=== PATIENT | female | born 1945 | race Caucasian/White ===

== ENCOUNTER 2018-07-12 10:26 | Day surgery (SDC) | payer MEDICARE, OTHER ==
[~2018-07-12] VITALS: Ht 165.1 cm; Wt 77.6 kg
[~2018-07-12 10:26] MED LIST: ALPR.5 PO; CHOL10002 PO; CIME400 PO; LORA1 PO; MAGCHL64ER PO; PROP10 PO; UBID10 PO
[2018-07-12] MEDS ORDERED: CO ENZYME PO (12:58)
[2018-07-12] MEDS ORDERED: VIT D PO (12:58)
[2018-07-12] MEDS ORDERED: METHI10 PO (13:00)
--- NOTE | 2018-07-12 13:03 | NUR ---
History, Chart, Medications and Allergies reviewed before start of procedure. Patient confirms NPO status and agrees with scheduled surgery. Lungs clear T/O to Auscultation. Patient DENIES completing Chlorhexadine shower X2 prior to admission to hospital. Pre-Op teaching done. Pt verbalizes understanding. Patient States Post-Procedure ride home has been arranged.
--- NOTE | 2018-07-12 13:39 | NUR ---
FAMILY AT BEDSIDE NOW, TRACKER EXPLAINED. OPPORTUNITY FOR QUESTIONS PROVIDED.
[2018-07-12 13:43] LABS: Anion Gap 10 mmol/L (6-16); Blood Urea Nitrogen 23 mg/dL (8-24); CO2, Blood 27 mmol/L (21-32); Calcium, Blood 9.2 mg/dL (8.5-10.1); Chloride, Blood 102 mmol/L (98-108); Creatinine, Blood 0.77 mg/dL (0.40-1.00); Glomerular Filtration Rate >60 (60-); Glucose, Blood 98 mg/dL (70-99); Potassium, Blood 3.1 mmol/L (3.5-5.5); Sodium, Blood 139 mmol/L (136-145)
--- NOTE | 2018-07-12 13:56 | NUR ---
SILK FOLDER BEDSIDE REPORT COMPLETED WITH PILO JUNIOR RN.
--- NOTE | 2018-07-12 15:05 | NUR ---
07/12/18 1505 Gael Hoyos ancef 2gm ivpb given at 1407 07/12/[address] [email or web address]
--- NOTE | 2018-07-12 16:50 | NUR ---
INTO STEP VIA RONEL. PT A&OX3. DENIES PAIN OR NAUSEA. BANDAIDE TO ABDOMEN X 4 C/D/I. SATS>90% ON 1 LITER NASAL CANULA. ENCOURAGED C&DB. MARIANA INITIATED.
--- NOTE | 2018-07-12 17:35 | NUR ---
Patient up to Ambulate independently. Gait steady. Dressing to procedure site clean, dry, intact with no visible drainage, swelling, erythema or bruising noted. Discharged via wheelchair to private car for ride home.
== END 2018-07-12 17:37 | disposition home or self-care (01) ==
LOC: ORSCMMR 10:26
PROVIDERS: Anesthesiology; Surgery
PROC: 0FT44ZZ Resection of Gallbladder, Percutaneous Endoscopic Approach (ICD-10-PCS; principal; 2018-07-12 12:00)
PROC: BF031ZZ Plain Radiography of Gallbladder and Bile Ducts using Low Osmolar Contrast (ICD-10-PCS; principal; 2018-07-12 12:00)
DX: K80.00 Calculus of gallbladder with acute cholecystitis without obstruction (principal); E03.9 Hypothyroidism, unspecified; Z79.899 Other long term (current) drug therapy
CPT/HCPCS: 74300; 80048; 88304; 93005; 93010; C1729; J0690; J1100; J1885; J2250; J2405; J3010; J7120

== ENCOUNTER → 2021-04-04 | Outpatient (CLI) | payer MEDICARE, OTHER ==
[~2021-04-04] MED LIST changes: +CO ENZYME PO; +METHI10 PO; +VIT D PO
[2021-04-04 18:17] LABS: Appearance, Urine Clear (Clear); Bilirubin, Urine Neg (Neg); Blood, Urine 4+ (Neg); Color, Urine Yellow (P-Yellow); Glucose Qualitative, Urine Neg (Neg); Ketones, Urine Neg (Neg); Leukocyte Esterase, Urine 2+ (Neg); Nitrite, Urine Neg (Neg); Protein, Urine 1+ (Neg); Specific Gravity, Urine 1.015 (1.003-1.022); Urobilinogen, Urine NORM (Normal)
[2021-04-04 18:38] LABS: Squamous Epithelial Cells Few /hpf (Few)
[2021-04-04 18:39] LABS: Bacteria Few /hpf; Renal Epithelial Rare /hpf (0-Rare)
== END | disposition home or self-care (01) ==
LOC: LAB 15:00 → LAB SHORT 15:00
PROVIDERS: Nurse Practitioner Family
DX: N30.00 Acute cystitis without hematuria (principal)
CPT/HCPCS: 81001; 87086